=== PATIENT | female | born 1945 | race Caucasian/White ===

== ENCOUNTER 2024-06-18 16:48 | Emergency (ER) | payer OTHER ==
[~2024-06-18] VITALS: Ht 152.4 cm; Wt 85.3 kg
[~2024-06-18 16:48] MED LIST: ASPIRIN ADULT L81 M2 PO; ATORVASTATIN CA20 M1 PO; B12 ACTIVE1000 MCG PO; CALTRATE 600 P1 EAC1 PO; CALTRATE 600+D1 EACH PO; CELEXA10 MG PO; DONEPEZIL HCL10 MG PO; HYDROXYZINE HCL25 MG PO; LOPRESSOR25 MG PO; MEMANTINE HCL ER7 MG PO; METFORMIN HYDR500 MG PO; OMNICEF300 MG PO; PREDNISONE50 MG PO; RISPERDAL0.5 MG PO; RISPERIDONE0.25 M2 PO; VIBRAMYCIN HYC100 MG PO
[2024-06-18] MEDS ORDERED: Acetaminophen/Oxycodone 5 MG/325 MG TABLET PO ONE (16:50)
== END 2024-06-18 18:29 | disposition home or self-care (01) ==
LOC: ED 16:48
DX: S09.8XXA Other specified injuries of head, initial encounter (principal); F03.90 Unspecified dementia, unspecified severity, without behavioral disturbance, psychotic disturbance, mood disturbance, and anxiety; E78.5 Hyperlipidemia, unspecified; Z87.891 Personal history of nicotine dependence; Z90.710 Acquired absence of both cervix and uterus; Z98.890 Other specified postprocedural states; W01.0XXA Fall on same level from slipping, tripping and stumbling without subsequent striking against object, initial encounter; Y93.89 Activity, other specified; Y92.129 Unspecified place in nursing home as the place of occurrence of the external cause; Y99.8 Other external cause status

== ENCOUNTER 2024-11-06 14:05 | Emergency (ER) | payer OTHER ==
[2024-11-06] MEDS ORDERED: Acetaminophen/Oxycodone 5 MG/325 MG TABLET PO ONE (14:10)
[2024-11-06] MEDS ORDERED: TRAMADOL HCL50 MG PO (15:10)
== END 2024-11-06 15:13 | disposition home or self-care (01) ==
LOC: ED 14:05
DX: M54.50 Low back pain, unspecified (principal); I10 Essential (primary) hypertension; E78.5 Hyperlipidemia, unspecified; F03.90 Unspecified dementia, unspecified severity, without behavioral disturbance, psychotic disturbance, mood disturbance, and anxiety; Z79.899 Other long term (current) drug therapy; Z79.82 Long term (current) use of aspirin; Z79.84 Long term (current) use of oral hypoglycemic drugs; Z90.711 Acquired absence of uterus with remaining cervical stump; Z87.891 Personal history of nicotine dependence; W20.8XXA Other cause of strike by thrown, projected or falling object, initial encounter; Y93.89 Activity, other specified; Y92.89 Other specified places as the place of occurrence of the external cause; Y99.8 Other external cause status